=== PATIENT | male | born 2000 | race Caucasian/White ===

== ENCOUNTER 2024-01-30 05:18 | Emergency (ER) | payer BC, OTHER ==
[2024-01-30] MEDS ORDERED: ONDANSETRON 4 MG/2 ML VIAL ONE ×2 (05:33→05:39)
[2024-01-30] MEDS ORDERED: NA CHLORIDE 0.9% 1,000 ML ONE ×3 (05:33→06:36)
[2024-01-30] MEDS ORDERED: METOCLOPRAMIDE 10 MG/2mL INJ ONE ×2 (05:33→05:39)
[2024-01-30] MEDS ORDERED: OCTREOTIDE ACETATE 100 MCG/ML ONE (05:39)
[2024-01-30 05:53] LABS: Arterial Blood Carboxyhemoglob 0.3 % (0-1.5); Blood Gas Oxyhemoglobin 76.6 % (94-97); Blood Gas THB 17.3 g/dl (12-18); Blood O2 Saturation 78.3 % (92-98.5)
[2024-01-30] MEDS ORDERED: NACHLORIDE 0.45% 1,000 ML IV ONE (05:55)
[2024-01-30 06:05] LABS: Absolute Lymphocytes (CBC) 1.5 K/uL (0.7-4.9); Absolute Monocytes 0.3 K/uL (0.1-1.3); Absolute Neutrophil 6.8 K/uL (1.8-8.0); Basophils % 0.6 % (0-1.3); Hematocrit 49.5 % (39.6-49.0); Hemoglobin 16.4 g/dL (13.6-17.9); Lymphocytes % 17.8 % (15.3-44.8); MCH 30.6 pg (27.0-35.0); MCHC 33.1 g/dL (32.0-36.0); MCV 92.6 fL (80-100); MPV 7.7 fL (7.6-11.3); Monocytes % 2.9 % (3.3-12.3); Neutrophils % 78.7 % (41.7-73.7); Platelets 301 thou/uL (152-406); RBC Red Blood Cell Count 5.34 M/uL (4.33-5.43); Red Cell Distribution Width 13.1 % (12.1-15.2)
[2024-01-30 06:22] LABS: Arterial Blood Carboxyhemoglob 0.2 % (0-1.5); Blood Gas Oxyhemoglobin 90.4 % (94-97); Blood Gas THB 16.9 g/dl (12-18); Blood O2 Saturation 92.2 % (92-98.5)
[2024-01-30 06:42] LABS: Albumin 3.7 g/dL (3.4-5.0); Albumin/Globulin Ratio 0.8 (1.1-1.8); Anion Gap 23.3 mEq/L (5.0-15.0); Bilirubin Total 0.8 mg/dL (0.2-1.0); Globulin 4.5 g/dL (2.3-3.5); Potassium 3.3 mEq/L (3.5-5.1); Protein, Total 8.2 g/dL (6.4-8.2); Troponin High Sensitivity 45.1 pg/mL (<58.9)
[2024-01-30] MEDS ORDERED: D50W 25 GM/50 ML SYRINGE IV ONE (06:45)
--- NOTE | 2024-01-30 07:01 | RAD REPORT ---
EXAMINATION: ONE VIEW CHEST XR CLINICAL INDICATION: Overdose TECHNIQUE: Frontal chest projection is submitted. Examination is limited by patient positioning and t echnique. COMPARISON: 11/11/2007 FINDINGS: Moderate bilateral pulmonary opacities may represent pulmonary edema or pneumonia. The heart is rogelio l in size. No displaced fractures identified.
[2024-01-30 07:09] LABS: Arterial Blood Carboxyhemoglob 0.4 % (0-1.5); Blood Gas Oxyhemoglobin 95.6 % (94-97); Blood O2 Saturation 97.7 % (92-98.5)
--- NOTE | 2024-01-30 07:15 | ER ---
Nurse's Notes [facility] Name: Vijay Johnston Age: 23 yrs Sex: Male : 2000 Arrival Date: 01/30/2024 Time: 05:18 Bed 2 Private MD: Diagnosis: Adverse effect of other narcotics;Acute respiratory failure;Acute respiratory failure with hypoxia;Pneumonia due to other specified bacteria-aspiration;Hypoglycemia, unspecified;Severe sepsis with septic shock Presentation: 01/29 05:31 Chief complaint: EMS states: patient family called police to check on patient. patient al5 found unresponsive in his room, police gave 2 rounds of narcan to patient and patient became aaox4. patient states he only took 1.5 percocet pills at about [id number] this morning and 4 beers at 2100 last night. denies SI/HI, states this was not an attempt to take his life. Coronavirus screen: At this time, the client does not indicate any symptoms associated with coronavirus-19. Ebola Screen: No symptoms or risks identified at this time. Initial Sepsis Screen: Does the patient meet any 2 criteria? RR > 20 per min. HR > 90 bpm. Yes Does the patient have a suspected source of infection? No. Patient's initial sepsis screen is negative. Risk Assessment: Do you want to hurt yourself or someone else? Patient reports no desire to harm self or others. Onset of symptoms was January 30, 2024. 05:31 Method Of Arrival: EMS: [facility] al5 05:31 Acuity: BRIAN 2 al5 Triage Assessment: 05:24 General: Appears distressed, ill, Behavior is cooperative. Pain: Denies pain. EENT: No al5 signs and/or symptoms were reported regarding the EENT system. Neuro: Level of Consciousness is awake, alert, obeys commands, Oriented to person, place, time, situation. Cardiovascular: Patient's skin is warm and dry. Respiratory: Airway is patent Respiratory effort is even, labored, Respiratory pattern is regular, symmetrical, tachypnea. GI: No signs and/or symptoms were reported involving the gastrointestinal system. : No signs and/or symptoms were reported regarding the genitourinary system. Derm: Skin is intact, is healthy with good turgor, Skin is dry, Skin is pale, Skin temperature is cool. Musculoskeletal: No signs and/or symptoms reported regarding the musculoskeletal system. Historical: - Allergies: 05:26 No Known Allergies; al5 - PMHx: 05:26 None; al5 - PSHx: 05:26 None; al5 - Immunization history:: Adult Immunizations up to date. - Infectious Disease History:: Denies. - Social history:: Patient uses alcohol, street drugs, percocets, Smoking status: unknown. Screenin:39 [facility] ED Fall Risk Assessment (Adult) History of falling in the last 3 months, al5 including since admission No falls in past 3 months (0 pts) Confusion or Disorientation No (0 pts) Intoxicated or Sedated Yes (3 pts) Impaired Gait Yes (1 pt) Mobility Assist Device Used No (0 pt) Altered Elimination No (0 pt) Score/Fall Risk Level 3 or more points = High Risk Oriented to surroundings, Maintained a safe environment, Hourly rounding (assess needs \\T\\ fall precautionary measures) done. Abuse screen: Denies threats or abuse. Denies injuries from another. Nutritional screening: No deficits noted. Tuberculosis screening: No symptoms or risk factors identified. Assessment: 05:38 Reassessment: see triage assessment. al5 06:27 General: Appears in no apparent distress. comfortable, Behavior is calm, cooperative, bm8 appropriate for age. Pain: Denies pain. Neuro: No deficits noted. Level of Consciousness is awake, alert, obeys commands, Oriented to person, place, time, situation, Appropriate for age. Cardiovascular: Denies chest pain, Heart tones S1 S2 present Capillary refill is > 3 seconds is sluggish in bilateral fingers Rhythm is sinus tachycardia. Respiratory: Airway is patent Trachea midline Respiratory effort is even, unlabored, Respiratory pattern is hyperventilation Breath sounds are clear bilaterally. GI: pt vomited coffee ground emesis x2. Bowel sounds present X 4 quads. Patient currently denies abdominal pain. : No signs and/or symptoms were reported regarding the genitourinary system. EENT: No signs and/or symptoms were reported regarding the EENT system. Derm: No signs and/or symptoms reported regarding the dermatologic system. Musculoskeletal: No signs and/or symptoms reported regarding the musculoskeletal system. 07:16 General: Appears comfortable, Behavior is calm, cooperative. Pain: Denies pain. Neuro: ph Yu Agitation-Sedation Scale (RASS): -1 Drowsy Level of Consciousness is awake, alert, obeys commands, Oriented to person, place, time, situation. Cardiovascular: Capillary refill < 3 seconds in bilateral fingers Rhythm is sinus tachycardia. Respiratory: Airway is patent Respiratory effort is even, shallow, Respiratory pattern is tachypnea. GI: Patient currently denies abdominal pain, nausea. : No signs and/or symptoms were reported regarding the genitourinary system. Derm: Skin is pale. Musculoskeletal: Circulation, motion, and sensation intact. Range of motion: intact in all extremities. 08:16 Reassessment: Patient appears in no apparent distress at this time. No changes from kc6 previously documented assessment. Patient and/or family updated on plan of care and expected duration. Pain level reassessed. Patient is alert, oriented x 3, equal unlabored respirations, skin warm/dry/pink. 09:16 Reassessment: Patient appears in no apparent distress at this time. No changes from kc6 previously documented assessment. Patient and/or family updated on plan of care and expected duration. Pain level reassessed. Patient is alert, oriented x 3, equal unlabored respirations, skin warm/dry/pink. Overdose: 05:40 [place] Suicide Severity Screening: "In the past month, have you wished you were al5 or wished you could go to sleep and not wake up?" Patient responds "no." "In the past month, have you actually had any thoughts of killing yourself?" Patient responds "no." Patient responds "yes." Based off client's responses, additional C-SSRS screening questions required. "In your lifetime, have you ever done anything, started to do anything, or prepared to do anything to end your life?" Patient responds "no.". Vital Signs: 05:31 BP 152 / 112; Pulse 123; Resp 28; Temp 97.8; Pulse Ox 86% on 4 lpm NC; Weight 77.11 kg; al5 Height 5 ft. 10 in. ; Pain 0/10; 05:51 BP 147 / 92; Pulse 130; Resp 31; Temp 97.8; Pulse Ox 99% on 15 lpm Non-rebreather mask; bm8 Pain 0/10; 06:26 BP 128 / 88; Pulse 120; Resp 26; Temp 97.8; Pulse Ox 100% on 15 lpm Non-rebreather bm8 mask; Pain 0/10; 07:17 BP 127 / 72; Pulse 116; Resp 38; Pulse Ox 100% on 15 lpm Non-rebreather mask; ph 08:02 BP 109 / 70; Pulse 112; Resp 41 S; Pulse Ox 100% on Non-rebreather mask; kc6 09:46 BP 121 / 70; Pulse 110; Resp 35 S; Pulse Ox 100% on Venturi mask; kc6 05:31 Body Mass Index 24.39 (77.11 kg, 177.8 cm) al5 05:31 Pain Scale: Adult al5 05:51 Pain Scale: Adult bm8 06:26 Pain Scale: Adult bm8 Gaby Coma Score: 05:51 Eye Response: spontaneous(4). Motor Response: obeys commands(6). Verbal Response: bm8 oriented(5). Total: 15. 06:26 Eye Response: spontaneous(4). Motor Response: obeys commands(6). Verbal Response: bm8 oriented(5). Total: 15. 07:17 Eye Response: spontaneous(4). Motor Response: obeys commands(6). Verbal Response: ph oriented(5). Total: 15. ED Course: 05:22 Patient arrived in ED. rv1 05:23 Amandeep Espinoza MD is Attending Physician. bo1 05:24 Alpa Donato, EMERSON is Primary Nurse. al5 05:30 Arm band placed on right wrist. Patient placed in the treatment room, in view of staff al5 members, on oxygen, on surveillance monitor, on pulse oximetry. 05:37 Triage completed. al5 05:40 Patient has correct armband on for positive identification. Placed in gown. Bed in low al5 position. Call light in reach. Side rails up X2. 05:50 No provider procedures requiring assistance completed. Inserted saline lock: 20 gauge bm8 in right antecubital area, using aseptic technique. Blood collected. Flushed with 10 mL NS Maintain EMS IV. Dressing intact. Good blood return noted. Site clean \\T\\ dry. Gauge \\T\\ site: 20g lac. Flushed with 10 mL NS. Oxygen administration via non-rebreather mask \\T\\ 15L/min Response to oxygen therapy: symptoms improved. Thermoregulation: warm blanket given to patient. Nancy blanket applied. 05:51 EKG done, by ED staff, reviewed by Amandeep Espinoza MD T\\T\\S collected, blood band applied to bm8 patient. 05:52 Inserted saline lock: 20 gauge in left antecubital area, using aseptic technique. Blood kmf collected. Flushed with 10 mL NS. 06:26 Client placed on continuous cardiac and pulse oximetry monitoring. NIBP monitoring bm8 applied. surveillance monitor on. Pulse ox on. NIBP on. Door closed. Noise minimized. Warm blanket given. Pillow given. PO fluids given. Verbal reassurance given. Head of bed elevated. 06:56 Chest Single View XRAY In Process Unspecified. EDMS 07:00 Report received from EMERSON Yuen \\T\\ EMERSON Howard. kc6 07:00 Patient has correct armband on for positive identification. Placed in gown. Bed in low kc6 position. Call light in reach. Side rails up X2. Adult w/ patient. surveillance monitor on. Pulse ox on. NIBP on. Door closed. Noise minimized. Lights dimmed. Warm blanket given. Pillow given. Verbal reassurance given. Head of bed elevated. One-on-one care X 60 minutes. 07:03 Attending Physician role handed off by Amandeep Espinoza MD kiana 07:03 Sudheer Haerd MD is Attending Physician. kiana 07:18 Primary Nurse role handed off by Alpa Donato, EMERSON ph 07:18 Eduarda Perez, EMERSON is Primary Nurse. ph 07:31 transfer initiated with Asmita at [facility]. em1 07:56 CT Chest For PE Angio In Process Unspecified. EDMS 08:30 Transfer initiated with [facility]. em1 08:40 Pt accepted to [facility], Dr. Jonn Lee is accepting physician, Smita Desouza is em1 Admin ; Pt is assigned to unit 8A Room 809. 09:24 Transfer with [facility] is cancelled. em1 09:48 Patient transferred, IV remains in place. kc6 Administered Medications: 07:31 Discontinued: ns 0.9% 1000 ml IV at 125 ml/hr once; to be given as a bolus over 60 kiana minutes 05:53 Drug: NS 0.9% IV 1000 ml IV at 1 bolus Per protocol; to be given as a bolus over 60 bm8 minutes Route: IV; Rate: 1 bolus; Site: right antecubital; 07:00 Follow up: Response: No adverse reaction; IV Status: Completed infusion; IV Intake: kc6 1000ml 05:53 Drug: SandoSTATIN IV 100 mcg IV at bolus once Route: IV; Rate: bolus; Site: right 8 antecubital; 06:30 Follow up: Response: No adverse reaction; IV Status: Completed infusion; IV Intake: [id number] 05:53 Drug: Ondansetron IVP 4 mg IVP once; over 2 minutes Route: IVP; Site: right antecubital;bm8 06:31 Follow up: Response: No adverse reaction bm8 05:53 Drug: metoCLOPramide IVP 20 mg IVP once; over 15 mins Route: IVP; Site: right 8 antecubital; 06:31 Follow up: Response: No adverse reaction bm8 05:53 Drug: Ondansetron IVP 4 mg IVP once; over 2 minutes Route: IVP; Site: right antecubital;bm8 06:31 Follow up: Response: No adverse reaction bm8 05:59 CANCELLED (Physician Discretion): ns0.45 % 1000 ml IV at 125 ml/hr continuous bm8 06:00 Drug: ns 0.9% 1000 ml IV at 1000 ml once; to be given as a bolus over 60 minutes Route: bm8 IV; Rate: 125 ml/hr; Site: right antecubital; 09:46 Follow up: Response: No adverse reaction; IV Status: Order to discontinue infusion kc6 06:14 Drug: Sodium Bicarbonate IVP 1 amp IVP once; (50 mL); equals 50 mEq Route: IVP; Site: 8 right antecubital; 06:31 Follow up: Response: No adverse reaction bm8 06:40 Drug: NS 0.9% IV 1000 ml IV at 1 bolus Per protocol; to be given as a bolus over 60 al5 minutes Route: IV; Rate: 1 bolus; Site: right antecubital; 07:57 Follow up: Response: No adverse reaction; IV Status: Completed infusion; IV Intake: kc6 1000ml 06:53 Drug: D50W IVP 50 ml IVP once; (1 amp) Route: IVP; Site: right antecubital; al5 07:15 Follow up: Response: No adverse reaction; Blood sugar is elevated kc6 07:57 Drug: Piperacillin-Tazobactam IVPB 3.375 grams IVPB once over 60 mins; (mix in NS 100 kc6 mL) Route: IVPB; Infused Over: 60 mins; Site: left antecubital; 09:45 Follow up: Response: No adverse reaction; IV Status: Completed infusion; IV Intake: kc6 100ml 07:57 Drug: Famotidine IVP 20 mg IVP once; dilute with 10 mL 0.9% NaCl; give over 2 minutes kc6 Route: IVP; Site: left antecubital; 09:45 Follow up: Response: No adverse reaction kc6 08:01 Drug: NS 0.9% IV (30 ml/kg) 30 ml/kg IV at bolus once; Sepsis Protocol; to be given as kc6 a bolus over 90 minutes {Note: pt received 3L of NS from night time nanny. ok per Dr. Heard.} Route: IV; Rate: bolus; Site: left antecubital; 09:44 Follow up: Response: No adverse reaction; IV Status: Completed infusion; IV Intake: kc6 2313ml 08:10 Drug: Solu-CORTEF IVP 100 mg IVP once Route: IVP; Site: right antecubital; kc6 09:44 Follow up: Response: No adverse reaction kc6 08:47 Drug: D5W IV 1000 ml, Sodium Bicarbonate IVP 100 mEq IV at 125 ml/hr continuous Route: kc6 IV; Rate: 125 ml/hr; Site: right antecubital; 09:45 Follow up: Response: No adverse reaction; IV Status: Infusion continued upon transfer; kc6 IV Intake: 1000ml Medication: 05:39 VIS not applicable for this client. al5 Intake: 06:30 IV: 10ml; Total: 10ml. bm8 07:00 IV: 1000ml; Total: 1010ml. kc6 07:57 IV: 1000ml; Total: 2010ml. kc6 09:44 IV: 2313ml; Total: 4323ml. kc6 09:45 IV: 1000ml; Total: 5323ml. kc6 09:45 IV: 100ml; Total: 5423ml. kc6 Outcome: 07:15 ER care complete, transfer ordered by MD. bruno 09:47 Transferred by [facility] to [facility], Transfer kc6 form completed. 09:47 critical 09:47 Instructed on the need for transfer, no drinking with medication, safety practices, 09:48 Patient left the ED. kc6 Signatures: Dispatcher [employer] EDSudheer Stephens MD MD cha Martinez, Judah em1 Eduarda Perez RN RN ph Rojas, Jesica RN RN kc6 Yuridia Schwab [facility] Jenniffer Shanks [facility] Amandeep Espinoza MD MD bo1 Lee Amaral RN RN bm8 Alpa Donato RN RN al5 Corrections: (The following items were deleted from the chart) 05:27 05:26 PSHx: Unable to Obtain; al5 al5 05:30 05:24 General: Appears in no apparent distress. ill, Behavior is calm, cooperative, al5 al5 05:30 05:24 Derm: Skin is intact, is healthy with good turgor, Skin is dry, Skin is pale, al5 Skin temperature is warm al5 05:38 05:24 Respiratory: Airway is patent Respiratory effort is even, unlabored, Respiratory al5 pattern is regular, symmetrical, tachypnea al5 05:38 05:24 General: Appears in no apparent distress. ill, Behavior is cooperative, al5 al5 06:30 06:26 BP 128 / 88; Pulse 120bpm; Resp 18bpm; Pulse Ox 100% 02 15lpm Non-rebreather bm8 mask; Temp 97.8F; Pain 0/10, Adult; bm8
--- NOTE | 2024-01-30 07:16 | EDPHYS ---
Physician Documentation [facility] Name: Vijay Johnston Age: 23 yrs Sex: Male : 2000 Arrival Date: 01/30/2024 Time: 05:18 Bed 2 Private MD: ED Physician Sudheer Heard HPI: 01/29 06:52 This 23 yrs old Male presents to ER via EMS with complaints of Possible Overdose. bo1 06:52 The patient presents to the emergency department with a possible overdose, Pt admits to bo1 taking 1.5 Percocets with 4 beers tonight. He denies other drugs. Found by GF not breathing well. 911 called when parents awoke. Context: Method: the patient has a confirmed or suspected ingestion, PO Percocet tabs and PO beer. Associated signs and symptoms: Pertinent positives: shortness of breath, vomiting. EMS states, that PD or ARLEN gave Narcan multiple times (2-4x). Pt denies HI or SI. Mother present "admits" to possible fentanyl intake. Historical: - Allergies: 05:26 No Known Allergies; al5 - PMHx: 05:26 None; al5 - PSHx: 05:26 None; al5 - Immunization history:: Adult Immunizations up to date. - Infectious Disease History:: Denies. - Social history:: Patient uses alcohol, street drugs, percocets, Smoking status: unknown. ROS: 06:55 Constitutional: Negative for fever, chills, and weight loss per pt bo1 06:55 Eyes: Positive for blurry vision, 06:55 Cardiovascular: Negative for chest pain, 06:55 Respiratory: Positive for shortness of breath, 06:55 Abdomen/GI: Positive for nausea, vomiting, Negative for abdominal pain, 06:55 MS/extremity: Positive for Being "cold", 06:55 Skin: Positive for discoloration, Pt is pale, 06:55 Psych: Positive for drug dependence, alcohol dependence, Negative for homicidal ideation, suicidal ideation, 06:55 All other systems are negative, Exam: 07:06 Constitutional: This is a pt in severe acute distress. bo1 07:06 Constitutional: The patient appears alert, awake, in obvious distress, severely distressed, obviously ill, Pale and cold to touch 07:06 Eyes: Conjunctiva: pale, 07:06 ENT: Breath odor: ETOH?, 07:06 Cardiovascular: Rate: tachycardic, Rhythm: regular, 07:06 Respiratory: moderate respiratory distress is noted, Respirations: labored breathing, shallow respirations, 07:06 Abdomen/GI: Bowel sounds: diminished, 07:06 Back: CVA tenderness, is absent, 07:06 Musculoskeletal/extremity: DVT Exam: no pain, no swelling, no tenderness, 07:06 Neuro: Orientation: is normal, Mentation: is normal, 07:06 Psych: Behavior/mood is pleasant, cooperative, 07:20 ECG was reviewed by the Attending Physician. [facility] 07:27 Respiratory: Respiratory rate: Tachypneic, increased rate to 35 bo1 Vital Signs: 05:31 BP 152 / 112; Pulse 123; Resp 28; Temp 97.8; Pulse Ox 86% on 4 lpm NC; Weight 77.11 kg; al5 Height 5 ft. 10 in. ; Pain 0/10; 05:51 BP 147 / 92; Pulse 130; Resp 31; Temp 97.8; Pulse Ox 99% on 15 lpm Non-rebreather mask; bm8 Pain 0/10; 06:26 BP 128 / 88; Pulse 120; Resp 26; Temp 97.8; Pulse Ox 100% on 15 lpm Non-rebreather bm8 mask; Pain 0/10; 07:17 BP 127 / 72; Pulse 116; Resp 38; Pulse Ox 100% on 15 lpm Non-rebreather mask; ph 08:02 BP 109 / 70; Pulse 112; Resp 41 S; Pulse Ox 100% on Non-rebreather mask; kc6 09:46 BP 121 / 70; Pulse 110; Resp 35 S; Pulse Ox 100% on Venturi mask; kc6 05:31 Body Mass Index 24.39 (77.11 kg, 177.8 cm) al5 05:31 Pain Scale: Adult al5 05:51 Pain Scale: Adult bm8 06:26 Pain Scale: Adult bm8 [place] Coma Score: 05:51 Eye Response: spontaneous(4). Motor Response: obeys commands(6). Verbal Response: bm8 oriented(5). Total: 15. 06:26 Eye Response: spontaneous(4). Motor Response: obeys commands(6). Verbal Response: bm8 oriented(5). Total: 15. 07:17 Eye Response: spontaneous(4). Motor Response: obeys commands(6). Verbal Response: ph oriented(5). Total: 15. MDM: 05:23 Medical Screening Exam initiated bo1 06:57 Differential diagnosis: Ingestion/exposure to Narcotics and ETOH (polysubstance abuse). bo1 Data reviewed: vital signs, lab test result(s), ABGs x multiple. Management of patient was discussed with the following: Family. Father and mother and pt refuse intubation till 3rd ABG since oxygen sat in progressively improving. 06:59 ED course: Pt is slowly improving. Color is much better. Sat on 100% NRB is now bo1 99-100%. Start was \\T\\ 77% RA. 07:04 Medical Screening Exam initiated [facility] 07:11 Response to treatment: the patient's symptoms have markedly improved after treatment. bo1 07:43 Post IV fluid administration reassessment for Sepsis: Client prescribed 30 mL/kg IVF. [facility] Sepsis focused reassessment complete. 01/29 05:25 Order name: CBC with Diff; Complete Time: 06:22 bo 01/29 05:25 Order name: CMP; Complete Time: 07:10 bo 01/29 05:25 Order name: Lipase; Complete Time: 07:10 bo 01/29 05:25 Order name: Urinalysis w/ reflexes bo 01/29 05:25 Order name: UDS bo 01/29 05:26 Order name: D-Dimer; Complete Time: 07:10 bo 01/29 05:26 Order name: ETOH Level; Complete Time: 07:10 bo 01/29 05:26 Order name: Troponin HS; Complete Time: 07:10 bo 01/29 05:29 Order name: ABG; Complete Time: 06:22 bo 01/29 05:31 Order name: Lactate w/ 2H reflex if indic.; Complete Time: 07:10 [facility] 01/29 05:31 Order name: Blood Culture Adult (2) [facility] 01/29 05:34 Order name: Type And Screen; Complete Time: 07:10 bo 01/29 05:52 Order name: ABG; Complete Time: 07:10 [facility] 01/29 06:19 Order name: ABG; Complete Time: 07:20 [facility] 01/29 06:30 Order name: Ghost Lactate-NO COLLECT Timer; Complete Time: 08:36 [facility] 01/29 07:27 Order name: Glucose, Ancillary Testing; Complete Time: 07:28 [facility] 01/29 09:11 Order name: Lactate Sepsis 2 HR Follow-up [facility] 01/29 05:25 Order name: Chest Single View XRAY; Complete Time: 07:10 bo 01/29 07:12 Order name: CT Chest For PE Angio; Complete Time: 08:20 [facility] 01/29 05:25 Order name: IV Saline Lock; Complete Time: 05:54 bo 01/29 05:25 Order name: Labs collected and sent; Complete Time: 05:54 bo 01/29 07:12 Order name: IV Saline Lock - Large Bore; Complete Time: 07:14 [facility] EC:20 Rate is 132 beats/min. Rhythm is regular. QRS [place] is Normal. NC interval is normal. kiana QRS interval is normal. QT interval is normal. No Q waves. T waves are Normal. No ST changes noted. Clinical impression: NSR w/ Non-specific ST/T Changes. Interpreted by me. Reviewed by me. Administered Medications: 07:31 Discontinued: ns 0.9% 1000 ml IV at 125 ml/hr once; to be given as a bolus over 60 kiana minutes 05:53 Drug: NS 0.9% IV 1000 ml IV at 1 bolus Per protocol; to be given as a bolus over 60 bm8 minutes Route: IV; Rate: 1 bolus; Site: right antecubital; 07:00 Follow up: Response: No adverse reaction; IV Status: Completed infusion; IV Intake: kc6 1000ml 05:53 Drug: SandoSTATIN IV 100 mcg IV at bolus once Route: IV; Rate: bolus; Site: right bm8 antecubital; 06:30 Follow up: Response: No adverse reaction; IV Status: Completed infusion; IV Intake: [id number] 05:53 Drug: Ondansetron IVP 4 mg IVP once; over 2 minutes Route: IVP; Site: right antecubital;bm8 06:31 Follow up: Response: No adverse reaction bm8 05:53 Drug: metoCLOPramide IVP 20 mg IVP once; over 15 mins Route: IVP; Site: right bm8 antecubital; 06:31 Follow up: Response: No adverse reaction bm8 05:53 Drug: Ondansetron IVP 4 mg IVP once; over 2 minutes Route: IVP; Site: right antecubital;bm8 06:31 Follow up: Response: No adverse reaction bm8 05:59 CANCELLED (Physician Discretion): ns0.45 % 1000 ml IV at 125 ml/hr continuous bm8 06:00 Drug: ns 0.9% 1000 ml IV at 1000 ml once; to be given as a bolus over 60 minutes Route: bm8 IV; Rate: 125 ml/hr; Site: right antecubital; 09:46 Follow up: Response: No adverse reaction; IV Status: Order to discontinue infusion kc6 06:14 Drug: Sodium Bicarbonate IVP 1 amp IVP once; (50 mL); equals 50 mEq Route: IVP; Site: bm8 right antecubital; 06:31 Follow up: Response: No adverse reaction bm8 06:40 Drug: NS 0.9% IV 1000 ml IV at 1 bolus Per protocol; to be given as a bolus over 60 al5 minutes Route: IV; Rate: 1 bolus; Site: right antecubital; 07:57 Follow up: Response: No adverse reaction; IV Status: Completed infusion; IV Intake: kc6 1000ml 06:53 Drug: D50W IVP 50 ml IVP once; (1 amp) Route: IVP; Site: right antecubital; al5 07:15 Follow up: Response: No adverse reaction; Blood sugar is elevated kc6 07:57 Drug: Piperacillin-Tazobactam IVPB 3.375 grams IVPB once over 60 mins; (mix in NS 100 kc6 mL) Route: IVPB; Infused Over: 60 mins; Site: left antecubital; 09:45 Follow up: Response: No adverse reaction; IV Status: Completed infusion; IV Intake: kc6 100ml 07:57 Drug: Famotidine IVP 20 mg IVP once; dilute with 10 mL 0.9% NaCl; give over 2 minutes kc6 Route: IVP; Site: left antecubital; 09:45 Follow up: Response: No adverse reaction kc6 08:01 Drug: NS 0.9% IV (30 ml/kg) 30 ml/kg IV at bolus once; Sepsis Protocol; to be given as kc6 a bolus over 90 minutes {Note: pt received 3L of NS from shift supervisor. ok per Dr. Heard.} Route: IV; Rate: bolus; Site: left antecubital; 09:44 Follow up: Response: No adverse reaction; IV Status: Completed infusion; IV Intake: kc6 2313ml 08:10 Drug: Solu-CORTEF IVP 100 mg IVP once Route: IVP; Site: right antecubital; kc6 09:44 Follow up: Response: No adverse reaction kc6 08:47 Drug: D5W IV 1000 ml, Sodium Bicarbonate IVP 100 mEq IV at 125 ml/hr continuous Route: kc6 IV; Rate: 125 ml/hr; Site: right antecubital; 09:45 Follow up: Response: No adverse reaction; IV Status: Infusion continued upon transfer; kc6 IV Intake: 1000ml Disposition Summary: 01/30/24 07:15 Transfer Ordered Notes: Transfer Location: [facility] kiana Reason: Higher level of care kiana Condition: Stable kiana Problem: new kiana Symptoms: have improved kiana Accepting Physician: to [facility] icu(01/30/24 09:48) kc6 Diagnosis - Adverse effect of other narcotics kiana - Acute respiratory failure kiana - Acute respiratory failure with hypoxia kiana - Pneumonia due to other specified bacteria - aspiration kiana - Hypoglycemia, unspecified kiana - Severe sepsis with septic shock kiana Forms: - Medication Reconciliation Form kiana - SBAR form kiana Signatures: Dispatcher [employer] EDSudheer Stephens MD MD cha Campbell, Kaitlyn RN RN kc6 Christine Richards cp4 Amandeep Espinoza MD MD bo1 Lee Amaral, RN RN bm8 Alpa Donato RN RN al5 Corrections: (The following items were deleted from the chart) 05:26 05:25 CBC+H.LAB.BRZ ordered. EDMS EDMS 05:26 05:25 COMPREHENSIVE METABOLIC PANEL+C.LAB.BRZ ordered. EDMS EDMS 05:26 05:25 LIPASE+C.LAB.BRZ ordered. EDMS EDMS 05:26 05:25 Urinalysis+U.LAB.BRZ ordered. EDMS EDMS 05:26 05:26 URINE DRUG SCREEN+UC.LAB.BRZ ordered. EDMS EDMS 05:26 05:26 D-DIMER+COAG.LAB.BRZ ordered. EDMS EDMS 05:27 05:27 Troponin High Sensitivity+C.LAB.BRZ ordered. EDMS EDMS 05:27 05:26 PSHx: Unable to Obtain; al5 al5 05:31 05:31 BLOOD CULTURE*+BA.LAB.BRZ ordered. EDMS EDMS 05:53 05:53 Arterial Blood Gas+RC.LAB.BRZ ordered. EDMS EDMS 05:59 05:25 NS IV 0.45 % 1000 ml IV at 125 ml/hr continuous ordered. bo1 bm8 06:20 06:20 Arterial Blood Gas+RC.LAB.BRZ ordered. EDMS EDMS 07:31 07:15 to [facility] icu kiana kiana 09:48 07:31 to [facility] icu kiana kc6
[2024-01-30] MEDS ORDERED: NA CHLORIDE 0.9% 100 ML ONE (07:18)
[2024-01-30] MEDS ORDERED: FAMOTIDINE 20 MG/2 ML VIAL IV ONE (07:18)
[2024-01-30] MEDS ORDERED: PIPERACIL/TAZO 3.375 GM VIAL IV ONE (07:18)
[2024-01-30] MEDS ORDERED: D5W 1,000 ML with NA BICARB 8.4% 100 MEQ IV SCH (08:00)
[2024-01-30] MEDS ORDERED: HYDROCORTISONE SUC 100 MG INJ ONE (08:05)
--- NOTE | 2024-01-30 08:05 | RAD REPORT ---
EXAMINATION: CTA CHEST PE CLINICAL INDICATION: CONGESTION TECHNIQUE: This examination was performed according to an angiographic protocol with 3D post-processi ng. This involves 3D reconstructions, MIPs, volume rendered images and/or shaded surface rendering. One or more of the following dose reduction techniques were used: Automated exposure control, adjustm ent of the mA and/or kV according to patient size, and/or iterative reconstruction. Unless otherwise specified, incidental findings do not require dedicated imaging follow-up. COMPARISON: 01/30/2024 chest radiograph FINDINGS: PULMONARY ARTERIES: Normal caliber. No evidence of pulmonary emboli to the segmental level. Distal b ranch assessment is limited by motion artifact. THORACIC AORTA: Normal caliber and configuration. LUNGS: Extensive bilateral alveolar lung opacities are present which may represent pulmonary edema or pneumonia. PLEURA: No pleural effusion. No pneumothorax. MEDIASTINUM AND LYMPH NODES: No mediastinal mass or fluid collection. Normal size mediastinal, hilar, and axillary lymph nodes. OSSEOUS STRUCTURES AND CHEST WALL: Intact. UPPER ABDOMEN: No significant abnormalities. IMPRESSION: No evidence of pulmonary emboli to the segmental level. Severe bilateral alveolar lung opacities likely represent pulmonary edema or pneumonia.
[2024-01-30 09:08] LABS: Specific Gravity 1.025 (1.005-1.030); Sqamous Epithelial None Seen /HPF (None Seen); Urine Bacteria None Seen /HPF (<20); Urine Bilirubin NEGATIVE (Negative); Urine Blood Negative (Negative); Urine Clarity Clear (Clear); Urine Color Light-Yellow (Yellow); Urine Culture Reflex Order NOT NEEDED; Urine Glucose 3+ (Negative); Urine Ketones 2+ (Negative); Urine Microscopic Reflex YN ORDER UMIC; Urine Mucus Slight /HPF (None Seen); Urine Nitrite NEGATIVE (Negative); Urine Protein TRACE (Negative); Urine RBC <5 /HPF (None Seen); Urine Urobilinogen Normal (Normal); Urine WBC <5 /HPF (<5)
[2024-01-30 09:27] LABS: Barbiturates NEGATIVE (NEGATIVE); Benzodiazepines NEGATIVE (NEGATIVE); Cocaine NEGATIVE (NEGATIVE); METHAMPHETAM NEGATIVE (NEGATIVE); Methadone NEGATIVE (NEGATIVE); Opiates NEGATIVE (NEGATIVE); Phencyclidine NEGATIVE (NEGATIVE); THC Cannibis NEGATIVE (NEGATIVE)
[2024-01-30 10:17] VITALS: TEMP 97.8
[2024-01-30 10:20] VITALS: O2SAT 100
[2024-01-30 10:24] VITALS: BP 121/70
--- NOTE | 2024-01-31 11:09 | EKG ---
Test Date: 2024-01-30 Test Time: 05:24:04 Systems Technician: KETTY MEASUREMENT RESULTS: Intervals: Rate: 132 MS: 156 QRSD: 104 QT: 282 QTc: 417 [place]: P: 75 MS: 156 QRS: 103 T: -35 INTERPRETIVE STATEMENTS: Sinus tachycardia Right atrial enlargement Rightward axis Cannot rule out Inferior infarct, age undetermined Abnormal ECG No previous ECG available for comparison Electronically Signed On 01-31-24 11:07:20 FIRE SPRINK[employer] INSPECTOR by Miguel Angel White
== END 2024-01-30 09:48 | disposition short-term general hospital (02) ==
LOC: ER 05:18
DX: J96.01 Acute respiratory failure with hypoxia (principal); T40.695A Adverse effect of other narcotics, initial encounter; J15.8 Pneumonia due to other specified bacteria; J69.0 Pneumonitis due to inhalation of food and vomit; R65.21 Severe sepsis with septic shock; E16.2 Hypoglycemia, unspecified
CPT/HCPCS: 93005; 87040 ×2; 85025; 81001; 36415; 86900; 86850; 86901; 82947; 85379; 83605 ×2; 84484; 83690; 80053; 80307; 71275; 71045; 82805 ×3; 99285; 82077; 36600 ×3; Q9967; J2354; J2765 ×2; J2543; J1720; J2405 ×2; J7030 ×3